=== PATIENT | male | born 1955 | race Caucasian/White ===

== ENCOUNTER 2017-12-07 08:58 | Day surgery (SDC) | payer BC ==
[~2017-12-07 08:58] MED LIST: FAMOTIDINE 20MG TABLET PO ONE; MECLIZINE 25 MG TABLET PO ONE; METOCLOPRAMIDE 10 MG TABLET PO ONE
[2017-12-07] MEDS ORDERED: FENTANYL PF 100MCG/2ML VIAL IV ONE (08:59)
[2017-12-07] MEDS ORDERED: LIDOCAINE 1% W/EPI 1:200,000 MPF 30ML SQ ONE (08:59)
[2017-12-07] MEDS ORDERED: BUPIVACAINE 0.5% W/EPI MPF 30 ML VIAL IVP ONE (08:59)
[2017-12-07] MEDS ORDERED: LIDOCAINE 2% MDV (20MG/ML) 20ML VIAL IV ONE (08:59)
[2017-12-07] MEDS ORDERED: MIDAZOLAM HCL 2MG/2ML VIAL IV ONE (08:59)
[2017-12-07] MEDS ORDERED: DEXAMETHASONE PRESERVATIVE FREE 10MG/ML VIAL IV ONE (08:59)
[2017-12-07] MEDS ORDERED: PROPOFOL 10 MG/ML VIAL IV ONE (08:59)
--- NOTE | 2017-12-07 22:29 | Operative Note - [place] ---
DATE OF SURGERY: 12/07/17. PREOPERATIVE DIAGNOSIS: CERVICAL SPONDYLOSIS WITHOUT MYELOPATHY, ICD-10 CODE = M47.812. SURGERY: RADIOFREQUENCY RHIZOTOMY BILATERAL CERVICAL FACETS 4-5, 5-6 AND 6-7. SURGEON: SELVIN HAYWOOD D.O. ANESTHESIA: LOCAL SEDATION. ANESTHESIA PROVIDER: WILFRED MOREL CRNA INDICATION: This patient presents with primary neck pain. Examination showed tenderness in the cervical spine. Range of motion does cause pain in the neck with extension. Diagnostic imaging shows diffuse and multilevel spondylosis. A facet series with 75+% pain control. Due to the failure of therapy and the success of the facet series, the patient presents today for rhizotomy for more long-term relief. SURGERY: Intravenous line, vital sign monitoring, IV sedation, prepped and draped, sterile technique. Cervical facet levels in the area of pain at 4-5, 5- 6 and 6-7 marked and infiltrated. A #22 gauge rhizotomy cannula positioned. Stimulation trials conducted. Rhizotomy burn performed. Local with anti- inflammatory into the sites. Topical antibiotics. Sterile dressing was applied. We will monitor and evaluate. cc: Dr. Christopher JOB NUMBER: [id number] MTDD
== END 2017-12-07 10:50 | disposition home or self-care (01) ==
LOC: SUR 08:58
PROVIDERS: ATTEND Pain Medicine Interventional Pain Medicine
DX: M47.812 Spondylosis without myelopathy or radiculopathy, cervical region (principal); I10 Essential (primary) hypertension

== ENCOUNTER 2019-03-14 05:41 | Day surgery (SDC) | payer BC ==
[2019-03-14] MEDS ORDERED: PROPOFOL 10 MG/ML VIAL IV ONE (05:42)
[2019-03-14] MEDS ORDERED: MIDAZOLAM HCL 2MG/2ML VIAL IV ONE (05:42)
[2019-03-14] MEDS ORDERED: FENTANYL PF 100MCG/2ML VIAL IV ONE (05:42)
[2019-03-14] MEDS ORDERED: LIDOCAINE 2% MDV (20MG/ML) 20ML VIAL IV ONE (05:42)
[2019-03-14] MEDS ORDERED: RINGERS SOLUTION,LACTATED 1,000 ML IV ONE (06:15)
[2019-03-14] MEDS ORDERED: BUPIVACAINE 0.5% W/EPI MPF 30 ML VIAL SQ ONE (07:29)
[2019-03-14] MEDS ORDERED: LIDOCAINE 1% W/EPI 1:100,000 MDV 20 ML VIAL SQ ONE (07:29)
[2019-03-14] MEDS ORDERED: DEXAMETHASONE PRESERVATIVE FREE 10MG/ML VIAL SQ ONE (07:30)
--- NOTE | 2019-03-14 15:30 | Operative Note ---
DATE OF SURGERY: 03/14/2019 PREOPERATIVE DIAGNOSIS: Cervical spondylosis without myelopathy. ICD 10 code M47.812 OPERATION: Radiofrequency rhizotomy bilateral cervical facets 4-5, 5-6, 6-7. SURGEON: Sarath Hall D.O. PRIMARY: Dr. Christopher ANESTHESIA: Local sedation. ANESTHESIA PROVIDER: ELIANA Mcclelland CRNA INDICATION: This patient presents with primary neck pain. Examination showed tenderness of the cervical spine range of motion does cause pain in the neck with extension. Diagnostic imaging shows diffuse and multiple level facet spondylosis. With previous facet series 75 to 85% pain control. Due to failure of therapy and the success of the facet series, he presents for rhizotomy for more long-term relief. PROCEDURE: Intravenous line, vital sign monitoring, IV sedation, prepped and draped in sterile technique, on imaging, with the patient prone, sterile prep, sterile technique the cervical facets 4-5, 5-6, and 6-7 were identified and marked and placed atraumatically. Stimulation trials conducted. Rhizotomy burn performed 80 degrees 90 seconds. Local anti-inflammatory in the sites. Topical antibiotic and sterile dressing applied. Will monitor and evaluate. Nothing unusual happened during the procedure that there were no abnormal results. [facility]
== END 2019-03-14 08:20 | disposition home or self-care (01) ==
LOC: SUR 05:41
PROVIDERS: ATTEND Pain Medicine Interventional Pain Medicine
DX: M47.812 Spondylosis without myelopathy or radiculopathy, cervical region (principal); I10 Essential (primary) hypertension; Z79.01 Long term (current) use of anticoagulants; R91.1 Solitary pulmonary nodule; Z85.528 Personal history of other malignant neoplasm of kidney; Z90.5 Acquired absence of kidney
CPT/HCPCS: 64633; 64634 ×2; 01936; J1100; J3010; J7120